=== PATIENT | male | born 1960 | race American Indian/Alaskan Native ===

== ENCOUNTER 2017-01-23 11:10 | Emergency (ER) | payer MEDICAID ==
[2017-01-23 11:32] VITALS: TEMP 98.7; O2SAT 99
--- NOTE | 2017-01-23 12:01 | C.PDOC ---
History Of Present Illness Patient is a 56 y/o male that is brought to the ED by PD for medical clearance for incarceration. Pt states that he fell on his right hand yesterday, and is complaining of pain to that hand. Pt also states that he forgot to take his Lisinopril 30mg tablet yesterday, and states he feels like his BP is high, associated with headache. Otherwise, denies any head injury, LOC, wrist pain, extremity weakness/numbness, dizziness, fever, or any other associated symptoms at this time. Time Seen by Provider: 01/23/17 11:47 Chief Complaint (Nursing): Headache History Per: Patient History/Exam Limitations: no limitations Onset/Duration Of Symptoms: Days (1) Current Symptoms Are (Timing): Still Present Pain Scale Rating Of: 2 Preceeding Symptoms: None Associated Symptoms: denies: Photophobia, Blurred Vision, Nausea, Vomiting, Extremity Weakness Recent travel outside of the [place]: No Additional History Per: Patient Past Medical History Reviewed: Historical Data, Nursing Documentation, Vital Signs Vital Signs: Last Vital Signs Temp 98.7 F 01/23/17 11:28 Pulse 69 01/23/17 12:37 Resp 16 01/23/17 12:37 BP 165/85 H 01/23/17 12:37 Pulse Ox 99 01/23/17 14:56 - Medical History PMH: HTN Family History: States: No Known Family Hx - Social History Hx Tobacco Use: Yes Hx Alcohol Use: No Hx Substance Use: Yes (Heroin) - Immunization History Hx Tetanus Toxoid Vaccination: Yes Hx Influenza Vaccination: Yes Hx Pneumococcal Vaccination: No Review Of Systems Except As Marked, All Systems Reviewed And Found Negative. Constitutional: Negative for: Fever, Chills Cardiovascular: Negative for: Chest Pain, Palpitations Respiratory: Negative for: Shortness of Breath Gastrointestinal: Negative for: Nausea, Vomiting, Abdominal Pain Musculoskeletal: Positive for: Hand Pain (right) Neurological: Positive for: Headache. Negative for: Weakness, Numbness, Dizziness Physical Exam - Physical Exam Appears: Well, Non-toxic, No Acute Distress Skin: Normal Color, Warm, Dry Head: Atraumatic, Normacephalic Eye(s): bilateral: Normal Inspection, EOMI Neck: Normal ROM, Supple Chest: Symmetrical, No Tenderness Cardiovascular: Rhythm Regular, No Murmur Respiratory: Normal Breath Sounds, No Rales, No Rhonchi, No Wheezing Gastrointestinal/Abdominal: Soft, No Tenderness Back: Normal Inspection Extremity: Normal ROM, Tenderness (right hand), Capillary Refill (< 2 sec.), No Deformity, Swelling (soft tissue swelling to medial aspect of right hand) Neurological/Psych: Oriented x3, Normal Speech, Normal Cognition, Normal Motor, Normal Sensation, No Other (no neurovascular deficits) ED Course And Treatment O2 Sat by Pulse Oximetry: 99 (on RA) Pulse Ox Interpretation: Normal - Other Rad Right hand x-ray X-Ray: Interpreted by Me, Viewed By Me Interpretation: No fracture, or dislocation. Progress Note: Right hand x-ray ordered and reviewed. Pt was given Lisinopril, and Tylenol in the ER. On re-eval, pt reports feeling better. Cock up splint applied to right wrist/hand. Reassessment Condition: Improved Disposition Counseled Patient/Family Regarding: Studies Performed, Diagnosis, Need For Followup - Disposition Referrals: [facility] [Outside] Disposition: RELEASED IN [employer] Disposition Time: 12:22 Condition: STABLE Additional Instructions: FOLLOW UP WITH PMD IN 2 DAYS FOR RE-EVALUATION AND OFFICIAL XRAY REPORT. PRELIMINARY READING: NO ACUTE FRACTURE OR DISLOCATION. WRIST SPLINT IS FOR COMFORT. IF PAIN PERSISTS NEED TO FOLLOW UP WITH ORTHOPEDIST. PATIENT IS MEDICALLY CLEARED FOR INCARCERATION. Instructions: Acute Headache (ED), Hand Sprain (ED), Hypertension (ED) Forms: General Discharge Instructions - Clinical Impression Clinical Impression: Headache, Hypertension, Hand sprain - PA / EMERGENCY ROOM CLERK / Resident Statement MD/DO has reviewed & agrees with the documentation as recorded. - Scribe Statement The provider has reviewed the documentation as recorded by the Harleyibnaz Holm All medical record entries made by the Megan were at my direction and personally dictated by me. I have reviewed the chart and agree that the record accurately reflects my personal performance of the history, physical exam, medical decision making, and the department course for this patient. I have also personally directed, reviewed, and agree with the discharge instructions and disposition.
[2017-01-23 12:39] VITALS: BP 165/85; PULSE 69; RESP 16
--- NOTE | 2017-01-23 19:15 | RAD ---
PROCEDURE: Right Hand Radiographs. HISTORY: pain COMPARISON: None. FINDINGS: BONES: Normal. No fracture. 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 DJD 1st MCP joint. SOFT TISSUES: Questionable mild dorsal soft tissue swelling. Rule out sequela of trauma versus cellulitis. OTHER FINDINGS: None. IMPRESSION: No acute fracture seen. Mild DJD. There is also mild dorsal soft tissue swelling. Rule out sequela of trauma versus in cellulitis. Consider followup MRI if further evaluation is required
== END 2017-01-23 12:54 ==
LOC: C.ER 11:10
DX: S63.91XA Sprain of unspecified part of right wrist and hand, initial encounter (principal); W18.30XA Fall on same level, unspecified, initial encounter; I10 Essential (primary) hypertension; R51 Headache

== ENCOUNTER 2017-05-24 19:17 | Emergency (ER) | payer MEDICAID ==
--- NOTE | 2017-05-24 19:45 | C.PDOC ---
History Of Present Illness Patient presents to the ER with a complaint of abdominal pain, nausea, and vomiting since yesterday after eating mac and cheese and chicken. Patient also reports having decreased PO intake and 2 episodes of loose stools that he would not categorize as diarrhea. Denies fever or chills. Time Seen by Provider: 05/24/17 19:45 Chief Complaint (Nursing): Abdominal Pain History Per: Patient History/Exam Limitations: no limitations Onset/Duration Of Symptoms: Days Current Symptoms Are (Timing): Still Present Severity: Mild Pain Scale Rating Of: 4 Location Of Pain/Discomfort: Diffuse Radiation Of Pain To:: None Quality Of Discomfort: Unable To Describe Associated Symptoms: Nausea, Vomiting. denies: Fever, Chills Exacerbating Factors: None Alleviating Factors: None Recent travel outside of the [place]: No Past Medical History Reviewed: Historical Data, Nursing Documentation, Vital Signs Vital Signs: Last Vital Signs Temp 97.8 F 05/24/17 21:31 Pulse 81 05/24/17 21:31 Resp 20 05/24/17 21:31 BP 126/69 05/24/17 21:31 Pulse Ox 98 05/24/17 21:31 - Medical History PMH: HTN Surgical History: No Surg Hx Family History: States: No Known Family Hx - Social History Hx Tobacco Use: Yes Hx Alcohol Use: No Hx Substance Use: No (heroin denies) - Immunization History Hx Tetanus Toxoid Vaccination: Yes Hx Influenza Vaccination: Yes Hx Pneumococcal Vaccination: No Review Of Systems Constitutional: Positive for: Other (Decreased PO intake). Negative for: Fever , Chills Gastrointestinal: Positive for: Nausea, Vomiting, Abdominal Pain Physical Exam - Physical Exam Appears: Non-toxic Skin: Warm, Dry Head: Normacephalic Oral Mucosa: Moist Chest: Symmetrical Cardiovascular: Rhythm Regular Respiratory: No Rales, No Rhonchi, No Wheezing Gastrointestinal/Abdominal: Soft, Tenderness (Mild diffuse), No Guarding, No Rebound Neurological/Psych: Oriented x3 ED Course And Treatment - Laboratory Results Result Diagrams: 05/24/17 20:05 05/24/17 20:05 O2 Sat by Pulse Oximetry: 99 (Room air) Pulse Ox Interpretation: Normal Progress Note: Blood work, EKG, and urinalysis ordered. Protonix, zofran, and IV fluids administered. Reevaluation Time: 22:42 Reassessment Condition: Improved Medical Decision Making Medical Decision Making: Upon provider reevaluation patient is feeling better, is medically stable, and requires no further treatment in the ED at this time. Patient will be discharged home with Rx for bentyl, zofran, miralax . Counseling was provided and all questions were answered regarding diagnosis and need for follow up with dr tian. There is agreement to discharge plan. Return if symptoms persist or worsen. Disposition Counseled Patient/Family Regarding: Studies Performed, Diagnosis, Need For Followup, Rx Given - Disposition Referrals: Derek Tian MD [Medical Doctor] - Disposition: HOME/ ROUTINE Disposition Time: 19:45 Condition: FAIR Additional Instructions: Please return if symptoms recur Prescriptions: Dicyclomine [Dicyclomine HCl] 10 mg PO TID PRN #15 cap PRN Reason: cramps Ondansetron ODT [Zofran ODT] 1 odt PO BID PRN #6 odt PRN Reason: Nausea/Vomiting Polyethylene Glycol 3350 [Miralax] 17 gm PO DAILY #270 ml Instructions: Abdominal Pain (ED), Gas and Bloating (ED), Constipation (DC) Forms: gripNote (Bulgarian) - Clinical Impression Clinical Impression: Abdominal pain, Constipation - Scribe Statement The provider has reviewed the documentation as recorded by the Scribnaz Tabor All medical record entries made by the Harleyibnaz were at my direction and personally dictated by me. I have reviewed the chart and agree that the record accurately reflects my personal performance of the history, physical exam, medical decision making, and the department course for this patient. I have also personally directed, reviewed, and agree with the discharge instructions and disposition.
[2017-05-24] MEDS ORDERED: Sodium Chloride 0.9% 1,000 ML IV ONE (19:57)
[2017-05-24] MEDS ORDERED: Sodium Chloride 0.9% 1,000 ML ONE (20:07)
[2017-05-24 20:14] LABS: BASO # 0.1 K/uL (0.0-0.2); BASO % 0.9 % (0.0-2.0); EOS # 0.2 K/uL (0.0-0.7); EOS % 2.5 % (0.0-4.0); HEMATOCRIT 41.5 % (35.0-51.0); LYMPH # 4.3 K/uL (1.0-4.3); LYMPH % 68.8 % (20.0-40.0); MEAN CELL VOLUME 88.1 fL (80.0-94.0); MEAN CORPUSCULAR HEMOGLOBIN 29.5 pg (27.0-31.0); MEAN CORPUSCULAR HGB CONC 33.5 g/dL (33.0-37.0); MEAN PLATELET VOLUME 8.4 fL (7.2-11.7); MONO # 0.4 K/uL (0.0-0.8); NRBC % 0.1 % (0.0-2.0); RED CELL DISTRIBUTION WIDTH 12.6 % (11.5-14.5); WHITE BLOOD COUNT 6.2 K/uL (4.8-10.8)
[2017-05-24 20:22] LABS: CHLORIDE 98 mmol/L (98-107); POTASSIUM 4.1 mmol/L (3.6-5.2); SODIUM 140 mmol/L (132-148)
[2017-05-24 20:24] LABS: ALB/GLOB RATIO 1.2 (1.0-2.1); AST/SGOT 58 U/L (17-59); BILIRUBIN,TOTAL 0.7 mg/dL (0.2-1.3); CARBON DIOXIDE 26 mmol/L (22-30); GFR AFRICAN-AMERICAN > 60; TOTAL PROTEIN 7.3 g/dL (6.3-8.3)
[2017-05-24 20:25] LABS: ALKALINE PHOSPHATASE 100 U/L (38-126); ALT/SGPT 75 U/L (21-72); BLOOD UREA NITROGEN 12 mg/dL (9-20); CALCIUM 9.1 mg/dl (8.6-10.4); GLUCOSE,RANDOM 115 mg/dL (75-110)
[2017-05-24 20:32] LABS: INR 1.1
[2017-05-24 20:48] LABS: URINE BACTERIA RARE (<OCC); URINE BILIRUBIN NEGATIVE (NEGATIVE); URINE BLOOD NEGATIVE (NEGATIVE); URINE COLOR Yellow (YELLOW); URINE GLUCOSE (UA) NORMAL (Normal); URINE KETONE NEGATIVE (NEGATIVE); URINE LEUKOCYTE ESTERASE NEG Leu/uL (Negative); URINE PROTEIN NEGATIVE (NEGATIVE); WBC URINE 1 /hpf (0-5)
[2017-05-24] MEDS ORDERED: Iohexol 300 100 ML IJ ONE (21:43)
--- NOTE | 2017-05-24 22:39 | CT ---
EXAM: CT Abdomen and Pelvis With Intravenous Contrast CLINICAL HISTORY: 57 years old, male; Pain; Abdominal pain; Generalized; Additional info: Abd pain, n/v TECHNIQUE: Axial computed tomography images of the abdomen and pelvis with intravenous contrast. All CT scans at this facility use one or more dose reduction techniques, viz.: automated exposure control; ma/kV adjustment per patient size (including targeted exams where dose is matched to indication; i.e. head); or iterative reconstruction technique. Coronal and sagittal reformatted images were created and reviewed. CONTRAST: 100 mL of omnipaque 300 administered intravenously. COMPARISON: No relevant prior studies available. FINDINGS: Lower thorax: The bilateral lung bases are clear. ABDOMEN: Liver: No acute findings. Gallbladder and bile ducts: The gallbladder is decompressed. No calcified stones. No significant intra- or extrahepatic biliary ductal dilation. Pancreas: Enhances homogeneously. No ductal dilation. No discrete mass. Spleen: No acute findings. Adrenals: No acute findings. Kidneys and ureters: No acute findings. No hydronephrosis or renal calculi. No discrete solid mass. PELVIS: Bladder: No acute findings. Reproductive: No acute findings. ABDOMEN and PELVIS: Stomach and bowel: No obstruction. No mucosal thickening. Peritoneum: No significant fluid collection. No free air. Lymph nodes: No pathologically enlarged lymph nodes. Vasculature: Unremarkable. Bones: No acute fracture. IMPRESSION: No acute intra-abdominal pathology, as detailed above.
[2017-05-24 22:45] VITALS: O2SAT 99
[2017-05-24 22:59] VITALS: BP 138/82; PULSE 67; RESP 18; TEMP 98.4
== END 2017-05-24 22:57 | disposition home or self-care (01) ==
LOC: C.ER 19:17
DX: K59.00 Constipation, unspecified (principal); R10.9 Unspecified abdominal pain
CPT/HCPCS: 74177; 80053; 81001; 83690; 85025; 85610; 85730; 96361; 96374; 96375; 99285; C9113; J2405; J7040; Q9967